=== PATIENT | female | born 2000 ===

== ENCOUNTER 2021-09-20 12:29 | Outpatient (RCR) | payer BC, SELFPAY ==
--- NOTE | 2021-09-24 11:53 | PC.NURSE ---
Patient unable to start the program as her current insurance is not active. Plans on calling her father who is the insurance love and call us back with an update.
== END 2021-09-22 11:37 | disposition home or self-care (01) ==
LOC: HO.PHPA 12:29
PROVIDERS: Visit Provider Psychiatry & Neurology Psychiatry
DX: F31.81 Bipolar II disorder (principal); F60.3 Borderline personality disorder; F41.9 Anxiety disorder, unspecified
CPT/HCPCS: 90791

== ENCOUNTER 2021-10-25 09:15 | Outpatient (RCR) | payer BC, SELFPAY ==
[2021-10-12 12:35] VITALS: BMI 29.6
--- NOTE | 2021-10-12 12:49 | PC.ADMIT ---
Patient is a 21 year old female who self referred to the [facility] d/r increase in severe depression and anxiety. Patient reportedly was in the [facility] emergency room a week and a half ago s/p self harming incident where she cut her L arm which required 4 stitches. Patient struggling with family issues and stated her family is a, big trigger . Patient has a dx of Bipolar II d/o and is currently depressed. Patient reports history of incarceration x 3 years for armed robbery and is on probation until 11/12/21. Patient stated she is attending the program to better herself and parole is mandating treatment as well. Patient appeared somewhat guarded during the assessment. Patient is alert and oriented x4. Calm and cooperative. Presents with depressed mood blunted affect. Denied SI or thoughts to self harm at present. Asked who she could reach out to if she felt unsafe and she stated staff as patient is living in a residential program. Patient also gave verbal permission to email her a copy of her safety plan. Medications reconciled with patient and patient's program staff Ally whom administers patient medications.
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
--- NOTE | 2021-10-14 16:25 | PC.NURSE ---
Case opened in treatment team.
--- NOTE | 2021-10-18 09:38 | PC.NURSE ---
Patient mentioned this morning in community meeting that residents in her program have tested positive for COVID and she thinks she may have COVID. She also stated she has chest pain. I spoke to her afterwards and asked if her program staff are aware that she has chest pain. Patient stated they are aware. Patient also stated she can't taste her cigarette when she is smoking. I told patient that chest pain is not a typical symptom of COVID and she should go to the emergency room if she is having chest pain and tell staff that I suggested she go to the ER to f/u with chest pain symptoms. Patient did not seem to be in any distress, she was lying down, no SOB or diaphoresis noted. Patient stated she needed to go as her staff came in her room to tell her they are testing her for COVID. Patient also is concerned that her friend who is will get COVID as they are not isolating in the residential home where she lives. Christina Mckinney [employer]PER[employer] aware.
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
--- NOTE | 2021-10-21 11:57 | PM.EVENT ---
Event Note Date of Service: 10/21/21 Event Note: Met with patient at 11:50. She appear to be on the phone, put it down, was distracted entire time I met with her. Appeared that she was continuing to text or had the phone on. She reports that she is leaving group early today to see her psychiatric provider and that she is leaving at 12:15. Reports that she is ?good? today, and did not engage further. 1. Will follow-up with patient, as she is seen outpatient provider today.
--- NOTE | 2021-10-22 15:28 | PC.NURSE ---
I spoke with the client after group. She is very angry and states that she felt people were telling her how she feels. One member did suggest that she may be feeling sad and this is the statement the client is struggling with . It appears hearing that may have made her feel too vulnerable. At the start of the conversation she stated that she wasn't coming back. As we talked we made a plan for her to take the rest of the day off, go to group at the residence and top talk with her friend at the house and her favorite staff. She states that she is safe and will be in Monday.
--- NOTE | 2021-10-26 11:27 | PC.NURSE ---
I called pt in the morning before program after staff informed me that pt appeared angry and shut-down in groups, was rolling her eyes apparently in response to peers, and expressing disinterest in program. (I was out yesterday). Pt agreed that she is frustrated with peers, and shared her view that the program is stupid and not helpful at all . She said she doesn't want to be in groups, but needs to successfully complete the program to meet the provisions of her probation. I offered to help pt with respectful communication of her feelings with peers, and she declined, saying she would lash out at them. I validated this fear, and suggested she might try to let the thoughts about anger with peers go and use groups in another way rather than acting out her feelings in group and not talking. I offered some thoughts about ways staff might help her with this. She said she cannot and will not work on this, and said, it's really not my problem . Ultimately, when given the choice, Pt chose to discharge from [facility] rather than talk about feelings or put them aside for the day.
--- NOTE | 2021-10-26 14:27 | PC.NURSE ---
Staff spoke to patient regarding her behavior in groups. Patient irritable and stated she did not want to continue the program thus patient discharged today. See Nette fletcher for further information. D/c paperwork faxed to providers.
--- NOTE | 2021-10-26 15:53 | PC.NURSE ---
I called and LM for pt's therapist, Mary Ellen Wang. I let her know of pt's discharge from [facility] today.
== END 2021-10-27 07:14 | disposition home or self-care (01) ==
LOC: HO.PHPA 09:15
PROVIDERS: Visit Provider Psychiatry & Neurology Psychiatry
DX: F31.9 Bipolar disorder, unspecified (principal); F60.9 Personality disorder, unspecified; F41.9 Anxiety disorder, unspecified
CPT/HCPCS: 90791; 90853